=== PATIENT | male | born 1960 | race Two or more races ===

== ENCOUNTER 2020-06-23 09:45 | Emergency (ER) | payer BC ==
[~2020-06-23] VITALS: Ht 170.2 cm; Wt 72.6 kg
--- NOTE | 2020-06-23 09:55 | NUR ---
PT IS IN ROOM #2A. DR IGLESIAS EVALUATED THE PT.
[2020-06-23] MEDS ORDERED: IV NORMAL SALINE 1000 ML BAG IV ONE (10:00)
[2020-06-23 10:26] LABS: BASOPHILS % (AUTO) 0.3 % (0.0-2.0); EOSINOPHILS # (AUTO) 0.1 K/uL (0.0-0.7); EOSINOPHILS % (AUTO) 1.2 % (0.0-7.0); HEMATOCRIT 40.2 % (36.7-47.1); HEMOGLOBIN 13.8 g/dL (12.5-16.3); LYMPHOCYTES # (AUTO) 1.5 K/uL (20.0-40.0); LYMPHOCYTES % (AUTO) 32.6 % (20.5-51.5); MEAN CORPUSCULAR HEMOGLOBIN 32.9 uug (23.8-33.4); MEAN CORPUSCULAR HGB CONC 34 g/dL (32.5-36.3); MEAN CORPUSCULAR VOLUME 95.7 fL (73.0-96.2); MONOCYTES # (AUTO) 0.4 K/uL (2.0-10.0); NEUTROPHILS # (AUTO) 2.6 K/uL (1.8-8.9); NEUTROPHILS % (AUTO) 56.9 % (38.5-71.5); PLATELET COUNT (AUTO) 188 K/uL (152-348); WHITE BLOOD COUNT (AUTO) 4.5 K/uL (3.6-10.2)
[2020-06-23 10:40] LABS: BILIRUBIN,DIRECT 0.2 mg/dL (0.0-0.2); BILIRUBIN,TOTAL 0.5 mg/dL (0.2-1.0); CREATININE 1.9 mg/dL (0.6-1.3); POTASSIUM 3.3 mmol/L (3.5-5.1); TOTAL PROTEIN, SERUM 7.4 g/dL (6.4-8.2)
--- NOTE | 2020-06-23 16:43 | NUR ---
PT IS RESTING IN BED COMFORTABLY , NO S/S OF ACUTE DISTRESS AT THIS TIME.
--- NOTE | 2020-06-23 17:16 | NUR ---
DR IGLESIAS TALKED TO THE PT AND EXPLAINED TO HIM THAT HE CAN NOT LEAVE HOSPITAL BY DRIVING HIS CAR WITH ETOH LEVEL MORE THAN 100 MG /DL. PT VERBALIZED UNDERSTANDING AND STATED THAT HE WILL USE TAXI OR HIS BROTHER WILL PICK HIM UP.
--- NOTE | 2020-06-23 18:59 | NUR ---
PT ELOPED FROM [facility]. DR IGLESIAS NOTIFIED.
== END 2020-06-23 18:40 | disposition left against medical advice (07) ==
LOC: ER 09:45
DX: F10.129 Alcohol abuse with intoxication, unspecified (principal); Y90.8 Blood alcohol level of 240 mg/100 ml or more; R94.31 Abnormal electrocardiogram [ECG] [EKG]; Z90.5 Acquired absence of kidney; N28.9 Disorder of kidney and ureter, unspecified
CPT/HCPCS: 36415; 70030-TC; 70450; 85025; 93005; A4663; G0480; J7030